=== PATIENT | male | born 1970 | race American Indian/Alaskan Native ===

== ENCOUNTER 2020-08-23 13:29 | Emergency (ER) | payer MEDICAID ==
[2020-08-23] MEDS ORDERED: LORazepam 2 MG/ML VIAL ONE (14:02)
[2020-08-23] MEDS ORDERED: levETIRAcetam 1000 MG/NS 0.75% 1,000 MG/100 ML BAG IV ONE ×2 (14:27→14:28)
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
[2020-08-23 14:56] LABS: Hematocrit 41.8 % (35.5-45.6); Hemoglobin 14.4 gm/dl (11.8-15.2); Mean Corpuscular HGB Conc 34 % (32-34); Mean Corpuscular Volume 91 fl (84-94); Platelet Count 311 K/mm3 (140-440); Red Blood Count 4.58 M/mm3 (3.65-5.03); Red Cell Distribution Width 14.5 % (13.2-15.2)
[2020-08-23] MEDS ORDERED: D5W/0.45% NACL 1,000 ML IV SCH (15:00)
[2020-08-23] MEDS ORDERED: niCARdipine DRIP 40 MG/200 ML BAG IV ONE (15:05)
--- NOTE | 2020-08-23 15:07 | XRay Report ---
CHEST 1 VIEW INDICATION: seizure, hypoxia. COMPARISON: None FINDINGS: SUPPORT DEVICES: None. HEART: Within normal limits. LUNGS/PLEURA: Mild patchy multifocal airspace disease with a bibasilar predominance. Consider an atyp ical infectious etiology such as viral pneumonia. ADDITIONAL FINDINGS: None. IMPRESSION: 1. Pulmonary findings as above. Signer Name: Jerson Oakes MD Signed: 08/23/2020 3:02 PM Workstation Name: [id number]
[2020-08-23] MEDS ORDERED: dexAMETHasone 4 MG/ML VIAL IV ONE (15:13)
[2020-08-23] MEDS ORDERED: cefTRIAXone/NS 1 GM/50 ML 1 GM/50 ML BAG IV ONE (15:13)
[2020-08-23] MEDS ORDERED: AZITHROMYCIN/NS 500 MG/250 ML 500 MG/250 ML BAG IV ONE (15:13)
[2020-08-23 15:15] LABS: Alanine Aminotransferase 19 units/L (7-56); Albumin 3.1 g/dL (3.9-5); BUN/Creatinine Ratio 12; Blood Urea Nitrogen 14 mg/dL (9-20); Calcium 8.5 mg/dL (8.4-10.2); Hemolysis Index 14
--- NOTE | 2020-08-23 15:32 | Cat Scan Report ---
. CT cervical spine wo con INDICATION / CLINICAL INFORMATION: 50 years Male; seizure, ams. TECHNIQUE: Axial CT images of the cervical spine were obtained. Sagittal and coronal reformatted images were pr oduced. All CT scans at this location are performed using CT dose reduction for ALARA by means of aut omated exposure control. COMPARISON: None available. FINDINGS: POST-SURGICAL CHANGES: None. ALIGNMENT: Straightening of the cervical spine noted, which may be related to patient positioning. VERTEBRAE: No signs of fracture. Vertebral bodies are grossly normal in height throughout. There is osseous foraminal narrowing bilaterally at C6-7, related uncinate hypertrophy. INTRAVERTEBRAL DISCS: Mild disc space narrowing at C6-7. Mild disc disease at various levels. No amy nant herniation appreciated. PARASPINAL SOFT TISSUES: No significant abnormality. ADDITIONAL FINDINGS: Mild mucosal thickening in the ethmoids. IMPRESSION: 1. No signs of acute bony trauma to the cervical spine. Signer Name: Abdulkadir Shaffer MD, III Signed: 08/23/2020 3:27 PM Workstation Name: [email or web address]
--- NOTE | 2020-08-23 15:33 | Cat Scan Report ---
CT head/brain wo con INDICATION / CLINICAL INFORMATION: 50 years Male; seizure, ams. TECHNIQUE: Routine CT head without contrast. All CT scans at this location are performed using CT dos e reduction for ALARA by means of automated exposure control. COMPARISON: None currently available FINDINGS: BRAIN / INTRACRANIAL CONTENTS: Small area of hemorrhage seen in the anteromedial left frontal lobe, m easuring approximately 2.6 cm AP by 2.5 cm craniocaudally by approximately 2 cm transversely. Minimal surrounding vasogenic edema and mass effect noted. In addition, there is a punctate area of hemorrhage in the middle frontal gyral region peripherally o n the right (axial image 20 of 32)-this finding might raise the question of diffuse axonal injury. Po sttraumatic etiology could certainly be a consideration given the patient's history, especially if pa tient is anticoagulated. Old, large right PICA territory infarcts suggested. Otherwise, no acute hemorrhage, mass effect, midline shift, hydrocephalus, or acute, large territori al infarct. Mild, diffuse cerebral and cerebellar atrophy. There are moderate to marked, confluent areas of decreased attenuation in the white matter of the cer ebral hemispheres, as well as the gangliocapsular regions. These are nonspecific findings and may be related to microangiopathy (hypertension, diabetes, atherosclerosis), given the patient's age. It félix ht be difficult to evaluate for small areas of ischemia without diffusion imaging by MRI. CRANIOCERVICAL JUNCTION: No significant abnormality. ORBITS: No significant abnormality of visualized orbits. SINUSES / MASTOIDS: Mild mucosal thickening seen in the ethmoids. ADDITIONAL FINDINGS: Atherosclerotic disease is seen in the anterior circulation. IMPRESSION: 1. Parenchymal hemorrhages in the frontal lobes as described above. Close follow-up is recommended to ensure and/or resolution stability of these findings. CRITICAL RESULT: Exam Completed (CROWN IRONER/CDT): 08/23/2020 2:00 PM Exam Reviewed (CROWN IRONER/CDT): 2:20 PM Time of Communication (CROWN IRONER/CDT): 2:25 PM Licensed Practitioner Receiving Report: Dr. Guevara Information confirmed: Yes. By Signer Name: Abdulkadir Shaffer MD, III Signed: 08/23/2020 3:29 PM Workstation Name: [id number]
[2020-08-23] MEDS ORDERED: ROCURONIUM 50 MG/5 ML INJ IV ONE (15:38)
[2020-08-23] MEDS ORDERED: ETOMIDATE 20 MG/10 ML INJ IV ONE (15:38)
[2020-08-23] MEDS ORDERED: LIDOCAINE PF 100 MG/5 ML (CARDIAC SYRINGE) IV ONE (15:38)
[2020-08-23 15:47] LABS: INR 1.03 (0.87-1.13)
[2020-08-23 15:48] LABS: Partial Thromboplastin Time 30.6 Sec. (24.2-36.6)
[2020-08-23] MEDS ORDERED: MINERAL OIL/PETROLATUM, WHITE OPHTH OINT 3.5 GM OU PRN (15:54)
[2020-08-23] MEDS ORDERED: LIP THERAPY VASELINE TP PRN (15:54)
[2020-08-23] MEDS ORDERED: fentaNYL 100 MCG/2 ML INJ IV PRN (15:54)
[2020-08-23] MEDS ORDERED: fentaNYL DRIP Premix 2,000 MCG/100 ML BAG IV SCH (16:00)
[2020-08-23] MEDS ORDERED: POTASSIUM CHLORIDE 10 MEQ 10 MEQ/100 ML BAG IV SCH (16:00)
[2020-08-23 16:08] LABS: C-Reactive Protein 0.3 mg/dL (0.00-1.30)
--- NOTE | 2020-08-23 16:25 | XRay Report ---
XR chest 1V ap INDICATION / CLINICAL INFORMATION: ETT placement. COMPARISON: 08/23/2020 FINDINGS: SUPPORT DEVICES: Endotracheal tube projects in the midtrachea. HEART /PULMONARY VASCULATURE: The cardiac silhouette is enlarged with similar mild prominence of the pulmonary vasculature. LUNGS / PLEURA: Patchy airspace opacities are unchanged. No sizable pleural effusion. No pneumothorax . IMPRESSION: Endotracheal tube projects in satisfactory position over the midtrachea. Signer Name: Javier Kurtz MD Signed: 08/23/2020 4:20 PM Workstation Name: [email or web address]
[2020-08-23 17:49] VITALS: BP 133/85
== END 2020-08-23 20:00 | disposition short-term general hospital (02) ==
LOC: ED 13:29
DX: I62.9 Nontraumatic intracranial hemorrhage, unspecified (principal); E87.6 Hypokalemia; I10 Essential (primary) hypertension; Z20.822 Contact with and (suspected) exposure to COVID-19; R56.9 Unspecified convulsions; Z79.899 Other long term (current) drug therapy
CPT/HCPCS: 31500; 36415; 70450; 71045; 72125; 80053; 80164; 82140; 82550; 82728; 82947; 82962; 83615; 83735; 84145; 85027; 85379; 85610; 85730; 86140; 87040; 96365; 96366; 96367; 96368; 96375; 99291; J0456; J0696; J1100; J1953; J2001; J2060; J2704; 80320; 94002; G0480

== ENCOUNTER 2021-04-30 06:22 | Day surgery (SDC) | payer MEDICAID ==
[2021-04-24 11:08] LABS: Hematocrit 38.6 % (35.5-45.6); Hemoglobin 12.5 gm/dl (11.8-15.2); Mean Corpuscular HGB Conc 32 % (32-34); Mean Corpuscular Volume 93 fl (84-94); Platelet Count 384 K/mm3 (140-440); Red Blood Count 4.15 M/mm3 (3.65-5.03); Red Cell Distribution Width 15.1 % (13.2-15.2)
[2021-04-24 11:40] LABS: Alanine Aminotransferase 18 units/L (7-56); Albumin 3.4 g/dL (3.9-5); BUN/Creatinine Ratio 13; Blood Urea Nitrogen 13 mg/dL (9-20); Calcium 9.1 mg/dL (8.4-10.2); Hemolysis Index 5
--- NOTE | 2021-04-24 13:57 | Anesthesia Consultation ---
Anesthesia Consult and Med Hx Date of service: 04/30/21 - Airway Anesthetic Teeth Evaluation: Edentulous ROM Head & Neck: Adequate Mental/Hyoid Distance: Adequate Mallampati Class: Class II Intubation Access Assessment: Good - Pre-Operative Health Status ASA Pre-Surgery Classification: ASA3 Proposed Anesthetic Plan: General - Pulmonary Hx Smoking: No - Cardiovascular System Hx Hypertension: Yes (Hx CHF 2009. 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
[~2021-04-30 06:22] MED LIST: LACTATED RINGERS 1,000 ML IV SCH; MIDAZOLAM 2 MG/2 ML INJ IV NR
[2021-04-30] MEDS ORDERED: levETIRAcetam 500 MG/5 ML ORAL LIQD PO STA (07:18)
--- NOTE | 2021-04-30 07:21 | Anesthesia Day of Surgery ---
Anesthesia Day of Surgery - Day of Surgery Patient Examined: Yes Patient H&P Reviewed: Yes Patient is NPO: Yes
[2021-04-30] MEDS ORDERED: HYDROmorphone 1 MG/1 ML INJ ONE (07:22)
[2021-04-30] MEDS ORDERED: propofoL 200 MG/20 ML VIAL IV ONE (07:22)
[2021-04-30] MEDS ORDERED: LIDOCAINE MPF (2%) 20 MG/1 ML VIAL 5 ML ONE (07:22)
[2021-04-30] MEDS ORDERED: SODIUM CHLORIDE 0.9% 500 ML 500 ML ONE (07:35)
[2021-04-30] MEDS ORDERED: SODIUM CHLORIDE 0.9% 500 ML IVPB IRRIGATION ONE (07:43)
[2021-04-30] MEDS ORDERED: WATER FOR IRRIG STERILE 2000 ML IR ONE (07:43)
[2021-04-30] MEDS ORDERED: HYDROcodone/ACETAMINOPHEN 5-325 MG TAB PO PRN (07:44)
[2021-04-30] MEDS ORDERED: HYDROmorphone 1 MG/1 ML INJ IV PRN (07:44)
[2021-04-30] MEDS ORDERED: ONDANSETRON 4 MG/2 ML INJ IV PRN (07:44)
[2021-04-30] MEDS ORDERED: WATER FOR IRRIG STERILE 1,500 ML BOTTLE IR ONE (07:49)
[2021-04-30] MEDS ORDERED: ceFAZolin/Water 2 GM/20 ML 2 GM/20 ML SYRINGE IV ONE (08:08)
[2021-04-30] MEDS ORDERED: GENTAMICIN/NS 80 MG/100 ML 100 ML IV ONE ×2 (08:09→08:14)
[2021-04-30] MEDS ORDERED: ONDANSETRON 4 MG/2 ML INJ ONE (08:37)
[2021-04-30] MEDS ORDERED: ceFAZolin/STERILE WATER 2 GM/20 ML SYRINGE IV NR (09:00)
[2021-04-30 10:01] VITALS: BP 150/80
--- NOTE | 2021-04-30 10:14 | Operative Report ---
DATE OF SURGERY: 04/30/2021 PREOPERATIVE DIAGNOSES: 1. Urinary retention. 2. History of recent cerebrovascular accident. 3. Urodynamic showing combination of neurogenic bladder and outlet obstruction. POSTOPERATIVE DIAGNOSES: 1. Urinary retention. 2. History of recent cerebrovascular accident. 3. Urodynamic showing combination of neurogenic bladder and outlet obstruction. OPERATIVE PROCEDURE: Rezum. ATTENDING: Logan Giles MD CONCESSION CASHIER: None. ANESTHESIA: General. ESTIMATED BLOOD LOSS: 5 mL. SPECIMENS: None. DRAINS: An 18-Hungarian coude catheter. COMPLICATIONS: None. INDICATIONS FOR PROCEDURE: The patient is a 50-year-old man with urinary retention, likely due to both neurogenic and anatomic obstruction. He has been in urinary retention for 6 months and he and his family would like to try outlet reduction, so that he does not have to live with a catheter permanently. DESCRIPTION OF PROCEDURE IN DETAIL: After induction of suitable anesthesia and proper positioning and preparation in the dorsal lithotomy position, cystoscopy was performed again to confirm outlet obstruction. The bladder was free of any mucosal lesions. The Rezum device was then inserted into the bladder under direct visualization. Three treatments were performed. One treatment at the left lateral lobe; the second treatment at the right lateral lobe; and the final treatment at the bladder neck. The device was used as directed by the sugar cane planter machine operator. There seemed to be good application of steam. There was no hematuria and no indication that there is any unusual deployment of the needle or application of the steam. Once complete, the device was removed. A Rosales catheter was placed. The patient was then awakened from anesthesia and transported to recovery room in stable condition. He tolerated the procedure well. He will return in approximately 5 days for catheter removal. TID: [id number] RECEIPT: [id number] RUSTAM/KATARINA
--- NOTE | 2021-04-30 11:47 | Post Anesthesia Evaluation ---
- Post Anesthesia Evaluation Patient Participated: Yes Airway Patent: Yes Stable Respiratory Function: Yes Nausea/Vomiting: No Temp > 96.8F: Yes Pain Manageable: Yes Adequeate Hydration: Yes Anesthesia Complications: No
== END 2021-04-30 11:00 | disposition home or self-care (01) ==
LOC: OR 06:22
PROVIDERS: ATTEND Urology
DX: R33.8 Other retention of urine (principal); N31.9 Neuromuscular dysfunction of bladder, unspecified; Z20.822 Contact with and (suspected) exposure to COVID-19; I11.0 Hypertensive heart disease with heart failure; I50.9 Heart failure, unspecified; E11.9 Type 2 diabetes mellitus without complications; Z79.899 Other long term (current) drug therapy; Z98.890 Other specified postprocedural states
CPT/HCPCS: 36415; 53854; 80053; 82962; 85027; J0690; J1170; J1580; J2405; J2704; J3490; J7040; J7120; U0003